=== PATIENT | male | born 1940 | race Caucasian/White ===

== ENCOUNTER 2024-08-19 08:44 | Outpatient (CLI) | payer MEDICARE, OTHER, SELFPAY ==
[2024-08-19] VITALS (12 sets, daily range): BP systolic 118–175; BP diastolic 47–63; PULSE 60–81; RESP 13–20; TEMP 36.5; O2SAT 92–100; BMI 23.0
--- NOTE | 2024-08-19 | IMM_PTH ---
PATIENT: DARVIN BURGESS LOC: CT U#:[id number] AGE/SX: 84/M ROOM: RE08/19/[address]: RITIKA Butler : 1940 BED: DIS: 08/19/2024 SPEC #: [id number] RECD: 08/20/24 11:25 STATUS: KAMILAH REQ #: [id number] DAV: 08/19/24 00:[address]: Christina Muñoz NP DEPT: IMMUNOHISTOCHEMISTRY RECD BY: Prashanth Danielle ENTERED: 08/20/24 11:25 SP TYPE: IMMUNO OTHR DR: ADILSON Poole CARDIOLOGY NURSE PRACTITIONER-C Tissues: A - Bone marrow of iliac crest B - Bone marrow of iliac crest Procedures: CD34 (initial) PHYSICIAN & INSTITUTION [place] [id number] SPECIMEN INFORMATION: Tissue Source: A- Bone marrow core, B- Bone marrow clot Clinical Info: Anemia Specimen Number: [id number] A, B CPT code: [id number] METHODOLOGY: Deparaffinized sections of prefer/formalin-fixed tissue or PAP/DQ stained slides are incubated with monoclonal/polyclonal antibodies/oligonucleotide probes. Localization is made via biotin free immunoperoxidase method. Appropriate controls are performed and reacted as expected. Results on target cell population are indicated in the following table: RESULTS: ANTIBODY / CLONE RESULT Block A CD34 (QBEnd-10) negative [place] (polyclonal) positive Lambda (polyclonal) positive CD138 (B-A38) positive Block B CD34 (QBEnd-10) negative [place] (polyclonal) positive Lambda (polyclonal) positive CD138 (B-A38) positive These tests were developed and their performance characteristics determined by [facility]. They may not have been cleared or approved by the U.S. Food and Drug Administration. The FDA has determined that such clearance or approval is not necessary. The above immunohistochemical/dualISH markers are ordered and reviewed by the Pathologist. INTERPRETATION: A. Bone marrow core, biopsy: Increased number of blasts are not noted. Significant increase of plasma cells is not seen. B. Bone marrow clot, biopsy: Increased number of blasts are noted. Significant increase of plasma cells is not seen. JOSE. 08/25/2024
[2024-08-19 09:05] LABS: Absolute Neutrophil Count 1.9 X10^3/uL (2.0-7.7); Basophil# 0.05 X10^3/uL; Basophil% 1.4 % (0-1); Eosinophil# 0.15 X10^3/uL; Eosinophils% 4.2 % (0-5); Hematocrit 27.9 % (40-54); Lymphocyte % 19.6 % (19-41); Mean Corp Hgb Conc 32.3 g/dL (32-36); Mean Corpuscular Hgb 36.6 pg (27.0-32.0); Mean Corpuscular Volume 113.4 fL (80-94); Monocyte# 0.74 X10^3/uL; Monocyte% 20.7 % (0-10); NRBC Flagged by Analyzer 0 % (0-5); Neutrophil # 1.92 X10^3/uL (2.7-7.7); Neutrophil % 53.8 % (47-70); Platelet Count 222 K/mm3 (150-450); RBC Distribution Width CV 15.3 % (11.6-14.6); RBC Distribution Width SD 63.4 fl (35.1-43.9); Red Blood Count 2.46 M/mm3 (4.6-6.2); White Blood Count 3.6 K/mm3 (4.4-11.0)
[2024-08-19 09:12] LABS: International Normalized Ratio 1.2; Partial Thromboplast Time 25.6 Seconds (24.1-36.2); Prothrombin Time (Protime)PT. 15.8 SECONDS (11.7-14.9)
--- NOTE | 2024-08-19 10:00 | BMB_PTH ---
PATIENT: DARVIN BURGESS LOC: [place] U#:[id number] AGE/SX: 84/M ROOM: RE08/19/[address]: RITIKA Butler : 1940 BED: DIS: 08/19/2024 SPEC #: [id number] RECD: 08/19/24 11:08 STATUS: KAMILAH REClaudy #: [id number] DAV: 08/19/24 10:[address]: Christina Muñoz NP DEPT: BONE MARROW RECD BY: Sasha Matias ENTERED: 08/19/24 11:09 SP TYPE: BMB HERMINIA DR: ADILSON Poole NP-C Tissues: A - Bone marrow, NOS B - Bone marrow, NOS C - Bone marrow, NOS Procedures: Decalcification bone/plaque Bone Marrow Aspiration Bone Marrow Core Biopsy Iron Stain Bone Marrow HEADER OPERATION: Bone marrow biopsy PRE-OP DIAGNOSIS: Anemia TISSUE SUBMITTED: A - Core, B - Clot, C - Smears, and send outs (flow, cytogenetics) BONE MARROW DIAGNOSIS Bone marrow core, clot and aspirate smears: Normoellular marrow with changes consistent with myelodysplastic syndrome. Macrocytic anemia, leukopenia, and neutropenia. See comment. JOSE 08/25/2024 COMMENT Atypical and ring sideroblasts are noted. Flow cytometry study from [facility] shows monotypic plasmacytic cell population with cytoplasmic kappa light chain expression, representing <1% of the total cells analyzed. The complete report is viewable in the patient's EMR. Cytogenetic and FISH studies are pending. Clinical correlation and appropriate follow up are necessary. This case has been reviewed in consultation with Dr. Garcia who concurs with the above diagnosis. IDC:PW BONE MARROW STUDY Slides are reviewed. CBC DATE: 08/19/2024 WBC 3.6; RBC 2.4; HGB 9.0; HCT 27.9; MCV 113.4; RDW 15.3; PLTS 222,000 SEGS 53.8%; LYMPHS 19.6%; MONOS 20.7%; EOS 4.2%; BASOS 1.4% PERIPHERAL SMEAR: Submitted. RBC: Macrocytic anemia. WBC: Leukopenia and neutropenia. The WBC count is compatible to as reported above. PLTS: Adequate. BONE MARROW ASPIRATE DIFFERENTIAL: 200 cell count. Blasts % (normal 0-2): 0 Promyelocytes % (normal 1-5): 2 Myelocytes and metamyelocytes % (normal 17-41): 13 Bands and Segs % (normal 15-32): 15 Eos % (normal 1-6): 5 Basos % (normal 0-1): 0 Monocytes % (normal 0-4): 1 Erythroid Precursors % (normal 17-35): 57 Lymphocytes % (normal 7-13): 6 Plasma Cells % (normal 0-2): 1 ASPIRATE FINDINGS: Site: Not specified Only 1 smear is cellular with bony spicules, rest of the smears shows hemodilution. All submitted smears are examined. M/E ratio: 0.6 (Normal 1.5-4.0) Megakaryocytes: Present and a few hypolobated megakaryocytes are noted Erythropoiesis: Megaloblastic Granulopoiesis: Left shift is noted. CORE BIOPSY FINDINGS: Site: Not specified Adequacy: Adequate Cellularity: 50% M/E ratio: Erythroid hyperplasia and myeloid hypoplasia is noted. Megakaryocytes: Present and adequate in number. Bony trabeculae: Unremarkable. Granulomas: Absent. Lymphoid aggregate: Absent. Atypical infiltrate: Absent. Comment: Immunohistochemistry ([id number]) does not show increased number of blasts and significant increased number of plasma cells ASPIRATE CLOT FINDINGS: Site: Not specified Marrow particles: Numerous Cellularity: 50% M/E ratio: Erythroid hyperplasia and myeloid hypoplasia is noted. Megakaryocytes: Present and adequate in number. Granulomas: Absent. Lymphoid aggregates: Absent. Atypical infiltrates: Absent. Comment: Immunohistochemistry ([id number]) does not show increased number of blasts and significant increased number of plasma cells. SPECIAL STAINS WITH MATCHED CONTROLS: Iron: 1+, atypical and ring sideroblasts are noted. Iron stain smear shows hemodilution. Exact number of ring sideroblasts cannot be assessed. Reticulin: No significant increase of reticulin fibers is noted. PAS: Highlights myeloid cells and megakaryocytes. BONE MARROW GROSS A - Received is a container labeled with the patient's name and designated Bone marrow core. The specimen consists of a minute piece of young bone mixed with blood clot measuring 0.5 x 0.1 x 0.1 cm. The specimen is totally submitted in one cassette after decalcification. B - Received labeled with the patient's name and designated Bone marrow clot is a specimen that consists of approximately 3 ml of bloody fluid that on filtration yields multiple minute fragments of blood clots measuring in aggregate 2 x 2 x 0.1 cm. The specimen is totally submitted in one cassette. C - Also received are 12 unstained slides and 1 peripheral stained slide. The unstained slides are submitted for appropriate staining. Also received are 2 green top tubes which are sent to our reference lab for flow, cytometry studies and MDS. /SJ. 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
[2024-08-19] MEDS: Midazolam 2 MG/2 ML Syringe IV (10:09)
--- NOTE | 2024-08-19 10:10 | CT_ITS ---
PROCEDURE: CT-guided bone marrow biopsy of the posterior right iliac bone. REASON FOR EXAM: Lymphopenia. Macrocytic anemia. TECHNIQUE: The procedure as well as the benefits and possible complications including infection and bleeding were explained to the patient. Informed consent was obtained. The patient was in the supine position. The posterior aspect of the right buttock was prepped and draped in the usual sterile fashion. Conscious sedation was performed. The patient received 2 mg of Versed and 50 mcg of fentanyl intravenously. Conscious sedation was started at 10:09 a.m. and terminated at 10:37 a.m.. The patient was independently monitored by the department nurse. 11 gauge core biopsy needle system was placed into the right iliac bone. Bone marrow biopsy and aspiration were obtained. The patient tolerated the procedure well. COMPARISON: None FINDINGS: Successful CT-guided bone marrow biopsy of the right iliac bone. CT/Biopsy/Inj or Needle Placement IMPRESSION: Successful CT-guided bone marrow biopsy of the right iliac bone. The patient t olerated the procedure well. No immediate complication is seen. One or more dose reduction techniques were used (e.g., Automated exposure contr ol, adjustment of the mA and/or kV according to patient size, use of iterative reconstruction technique). Reading Location: [place] [id number]
[2024-08-19] MEDS: 0.9% Saline Lock 10 ML Syringe IV (10:14)
[2024-08-19] MEDS: fentaNYL 100 MCG/2 ML Ampul IV (10:15)
[2024-08-19] MEDS: Lidocaine 2% (20 ml mdv) 20 ML Vial INFILT (10:28)
[2024-09-01 13:21] LABS: LabCorp Misc. 4 SEE PATHOLOGY REPORT
== END 2024-08-19 23:59 | disposition home or self-care (01) ==
PROVIDERS: Referring Provider Nurse Practitioner Family; Visit Provider Nurse Practitioner Family
DX: D53.9 Nutritional anemia, unspecified (principal); D72.810 Lymphocytopenia
CPT/HCPCS: 38221; 36415; 77012; 85025; 85610; 85730; 88305; 88311; 88313; 88342; 99156; A4216

== ENCOUNTER → 2024-10-19 | Outpatient (CLI) | payer MEDICARE, OTHER, SELFPAY ==
--- NOTE | 2024-10-19 12:41 | ECHOD_ITS ---
Reason For Study Reason For Study: CAD/ASHD Procedure This was a 2D Doppler, Color Flow transthoracic echocardiogram. Exam performed in department. Left Ventricle Normal LV size. Mild concentric left ventricular hypertrophy. Redundant mitral chord noted. The left ventricular ejection fraction is 55 %. Stage I diastolic dysfunction with elevated left atrial filling pressures. Right Ventricle Normal right ventricle. ICD or pacer leads identified within the right ventricle. Atria The left and right atria are normal. ICD or pacer leads identified within the right atrium. Mitral Valve Mild (1+) mitral valve insufficiency. Tricuspid Valve Mild tricuspid valve insufficiency. Right ventricular systolic pressure estimated to be 71 mmHg. Aortic Valve Trisinus/trileaflet aortic valve. Aortic valve sclerosis without stenosis. Mild aortic valve regurgitation. Pulmonic Valve The pulmonic valve is not well visualized. Great Vessels Normal sized aortic root. Pericardium/Pleural No pericardial effusion. MMode/2D Measurements & Calculations LVIDd: 4.8 cm IVSd: 0.99 cm Ao root diam: 2.8 cm LVIDs: 3.4 cm LVPWd: 1.3 cm RVDd: 3.9 cm FS: 30.3 % LAV(MOD-bp): 53.2 ml LVAd ap4: 29.8 cm2 SV(MOD-sp4): 50.9 ml LAV(MOD-bp) Indexed: 26.5 ml/m2 LVLd ap4: 8.1 cm SI(MOD-sp4): 25.3 ml/m2 LAV(MOD-sp2): 57.5 ml EDV(MOD-sp4): 90.9 ml LAV(MOD-sp4): 51.8 ml EDV(sp4-el): 93.2 ml LVAs ap4: 18.0 cm2 LVLs ap4: 7.2 cm ESV(MOD-sp4): 40.0 ml ESV(sp4-el): 38.2 ml EF(MOD-sp4): 56.0 % EF(sp4-el): 59.0 % SV(sp4-el): 55.0 ml LA A4 area: 19.1 cm2 LA dimension(2D): 3.6 cm RA A4 area: 18.4 cm2 TAPSE: 2.5 cm Time Measurements MV dec time: 0.23 sec Doppler Measurements & Calculations MV E max roc: 84.0 cm/sec Lat Peak E' Roc: 6.6 cm/sec Med Peak E' Roc: 3.6 cm/sec MV A max roc: 88.0 cm/sec E/E' lat: 12.7 E/E' med: 23.1 MV E/A: 0.96 Ao V2 max: 154.4 cm/sec AI max roc: 372.3 cm/sec MV dec slope: 359.4 cm/sec2 Ao max P.5 mmHg AI max P.5 mmHg Ao V2 mean: 100.2 cm/sec Ao mean P.7 mmHg AI dec slope: 235.5 cm/sec2 Ao V2 VTI: 40.9 cm AI P1/2t: 463.0 msec AV (velocity ratio): 0.78 LV V1 max: 114.4 cm/sec PA V2 max: 93.8 cm/sec TR max roc: 374.7 cm/sec LV V1 max P.2 mmHg TR max P.1 mmHg LV V1 mean P.8 mmHg LV V1 mean: 77.8 cm/sec LV V1 VTI: 32.1 cm ECHO/Echo Complete Interpretation Summary Mild concentric left ventricular hypertrophy. The left ventricular ejection fraction is 55 %. Stage I diastolic dysfunction w ith elevated left atrial filling pressures. Mild (1+) mitral valve insufficiency. Mild tricuspid valve insufficiency. Right ventricular systolic pressure estimated to be 71 mmHg. Aortic valve sclerosis without stenosis. Mild aortic valve regurgitation. Ordering Physician: Naomi Padron Referring Physician: Reggie Leigh Performed By: Marleny Judd, JASSCS, RVT
== END | disposition home or self-care (01) ==
LOC: CVS 12:36
PROVIDERS: Referring Provider Internal Medicine Cardiovascular Disease; Visit Provider Internal Medicine Cardiovascular Disease
DX: I11.0 Hypertensive heart disease with heart failure (principal); I50.9 Heart failure, unspecified; I25.10 Atherosclerotic heart disease of native coronary artery without angina pectoris; R53.83 Other fatigue
CPT/HCPCS: 93306

== ENCOUNTER 2025-05-07 11:15 | Inpatient (IN) | payer MEDICARE, OTHER, SELFPAY ==
[2025-05-07] VITALS (15 sets, daily range): BP systolic 147–194; BP diastolic 51–75; PULSE 60–86; RESP 16–24; TEMP 36.3–36.8; O2SAT 85–100; BMI 23.3
[2025-05-07 12:34] LABS: Hematocrit 27.0 % (40-54); Hemoglobin 8.4 g/dL (13.0-16.5); Immature Granulocytes Count 0.040 X10^3/uL (0.0-0.0); Mean Corp Hgb Conc 31.1 g/dL (32-36); Mean Corpuscular Volume 116.4 fL (80-94); Mean Platelet Vol. 11.1 fl (6.2-12.0); NRBC Flagged by Analyzer 0 % (0-5); POSITIVE DIFFERENTIAL YES; POSITIVE MORPHOLOGY YES; Platelet Count 224 K/mm3 (150-450); RBC Distribution Width CV 16.4 % (11.6-14.6); RBC Distribution Width SD 70.3 fl (35.1-43.9); Red Blood Count 2.32 M/mm3 (4.6-6.2); White Blood Count 4.8 K/mm3 (4.4-11.0)
[2025-05-07 12:38] LABS: Differential Indicated SCAN CRITERIA MET
[2025-05-07] MEDS: 0.9% Normal Saline (1000mL) 1,000 ML 999 ML IV (12:39)
--- NOTE | 2025-05-07 12:50 | RAD_ITS ---
PROCEDURE: RAD/Chest PA and Lateral
[2025-05-07 13:13] LABS: Anion Gap 9 (5-15); BUN 20 mg/dL (4-19); BUN/Creat Ratio 14.1 RATIO (10-20); Calcium,Total 9.1 mg/dL (7.6-11.0); Carbon Dioxide 27.3 mmol/L (21.0-32.0); Chloride 104 mmol/L (98-108); Glucose 232 mg/dL (70-99); Potassium 4.8 mmol/L (3.3-5.1); Pro- Brain NATRIURETIC PEPTIDE 3325 pg/mL (<=1800); Troponin T High Sensitivity 33 ng/L (<=22)
[2025-05-07 13:34] LABS: Anisocytosis 1+
--- NOTE | 2025-05-07 14:18 | EX.ED.DYSGE1 ---
HPI History of Present Illness Chief Complaint: Shortness of Breath Narrative Narrative: Patient is 84-year-old male with past medical history of basal cell carcinoma, type 2 diabetes, CHF, chronic kidney disease, anemia, hypertension, COPD not chronically on oxygen who presented to the emergency department the chief complaint of low oxygen levels. He states that for the past few days he notes that if he gets up and walks around his oxygen level will drop he noted at home it was at 67% on room air and he felt lightheaded with this. He states that he sits down and take some deep breaths and notes that his oxygen level will recover. He states that he had an appointment today and he brought this up to them and they advised him that he needs to go to the emergency department to be evaluated. Patient was hypoxic in triage placed on 2 L nasal cannula. [facility] Medical History Basal cell carcinoma Abnormality of gait and mobility Vitamin D deficiency Vertigo Venous insufficiency Urinary frequency Type 2 diabetes mellitus with diabetic polyneuropathy Type 2 diabetes mellitus with diabetic peripheral angiopathy without gangrene, without long-term current use of insulin Sick sinus syndrome Shaky Sensorineural hearing loss (SNHL) of both ears Seborrheic keratoses long-term (current) use of oral hypoglycemic drugs Stage 3b chronic kidney disease Hypertensive heart disease with heart failure Chronic kidney disease Hypertensive heart and renal disease with heart failure Fatigue Elevated MCV Dermoid cyst De Quervain's tenosynovitis Atherosclerosis of [place] artery of both lower extremities Atherosclerosis of aorta Anemia Lymphopenia Cellulitis of right thumb Puncture wound of right thumb with foreign body Hypertension Hyperlipemia Gout DM2 (diabetes mellitus, type 2) COPD (chronic obstructive pulmonary disease) Pacemaker Leukopenia Macrocytic anemia Home Medications ?Medication ?Instructions ?Recorded ?Last Taken ?Type allopurinol 100 mg tablet 100 mg PO QDAY 05/04/24 Unknown History ascorbate calcium (vitamin C) 500 500 mg PO QDAY 05/04/24 Unknown History mg tablet atenolol 50 mg tablet 50 mg PO QDAY 05/04/24 Unknown History mecobalamin (vitamin B12) 1,000 1,000 mcg PO QDAY 05/04/24 Unknown History mcg chewable tablet simvastatin 20 mg tablet 20 mg PO QDAY 05/04/24 Unknown History tiotropium bromide 1.25 2 puff inhalation Q24H 05/04/24 Unknown History mcg/actuation mist for inhalation (Spiriva Respimat) valsartan 80 mg tablet 80 mg PO QDAY 05/04/24 Unknown History albuterol sulfate 90 mcg/actuation 2 puff inhalation Q4H PRN 05/19/24 Unknown History aerosol inhaler shortness of breath or wheezing cholecalciferol (vitamin D3) 10 10 mcg PO QDAY 05/19/24 Unknown History mcg (400 unit) capsule folic acid 1 mg tablet 0.8 mg PO QDAY 05/19/24 Unknown History meclizine 25 mg chewable tablet 25 mg PO DAILY 08/19/24 Unknown History (Antivert) aspirin 81 mg tablet,delayed 81 mg PO QDAY #90 tabs 09/17/24 Unknown Rx release (Ecotrin Low Strength) amlodipine 5 mg tablet 5 mg PO QDAY #90 tabs 10/28/24 Unknown Rx Allergy/AdvReac Type Severity Reaction Status Date / Time Penicillins Allergy blister Verified 05/07/25 11:19 Family History Father Pancreatic cancer Mother CVA (cerebral vascular accident) Surgical History History of dental surgery History of removal of skin mole Social History current occupational status: retired Smoking Status: Former smoker Tobacco: How many years used: 20 alcohol intake: current alcohol intake frequency: a few times a month substance use type: does not use ROS ROS ED ROS Narrative Constitutional: Denies any fevers, chills, headaches Eyes: Denies change in vision double vision blurry vision Cardiovascular: Denies chest pain Respiratory: Complains of shortness of breath as noted above denies coughing Abdomen: Denies abdominal pain nausea vomit diarrhea : Denies urinary symptoms Neurological: Denies numbness, weakness, tingling Musculoskeletal: Denies back pain Skin: Denies any rashes or lesions EXAM Physical Exam Narrative Exam Narrative: General: Patient was lying in bed rest comfortably did not appear to be in acute distress Head: Atraumatic, normocephalic Eyes: PERRL bilaterally, EOMI bilaterally, no conjunctival injection noted Neck: Soft, supple, trachea midline Cardiovascular: Regular rate and rhythm Respiratory: Diminished breath sounds bilaterally Abdomen: Soft, nondistended, no tenderness to palpation Extremities: 2+ pitting edema in the bilateral lower extremities, +4/5 strength noted in the bilateral upper and lower extremities Neurological: Patient following commands that he was at [facility] the year is 2024 Skin: Warm, dry, intact no rashes lesions noted Const Vital Signs: 05/07/25 11:16 05/07/25 11:21 05/07/25 11:32 Temperature 98 F Temperature Source Oral Pulse Rate 66 Respiratory Rate 24 H Respiratory Depth Normal Respiratory Pattern Normal Blood Pressure 147/75 H Blood Pressure Mean 99 Pulse Ox 85 97 Oxygen Delivery Method Room Air Nasal Cannula Nasal Cannula Oxygen Flow Rate (L/min) 2 2 05/07/25 12:16 05/07/25 12:25 05/07/25 12:50 Temperature Temperature Source Pulse Rate 61 Respiratory Rate 16 Respiratory Depth Respiratory Pattern Blood Pressure 147/55 H Blood Pressure Mean 85 Pulse Ox 100 89 Oxygen Delivery Method Nasal Cannula Nasal Cannula Room Air Oxygen Flow Rate (L/min) 2 2 05/07/25 13:00 05/07/25 13:03 05/07/25 13:09 Temperature Temperature Source Pulse Rate 61 60 Respiratory Rate 16 17 Respiratory Depth Respiratory Pattern Normal Blood Pressure 176/66 H Blood Pressure Mean 102 Pulse Ox 98 100 Oxygen Delivery Method Room Air Nasal Cannula Oxygen Flow Rate (L/min) 2 05/07/25 14:03 Temperature Temperature Source Pulse Rate 67 Respiratory Rate 17 Respiratory Depth Respiratory Pattern Blood Pressure 151/51 H Blood Pressure Mean 84 Pulse Ox 94 Oxygen Delivery Method Room Air Oxygen Flow Rate (L/min) MDM MDM MDM Narrative Medical decision making narrative: Patient is a 84-year-old male who presents to the emergency department with a chief complaint of shortness of breath and hypoxia on room air. On the differential diagnose includes but not meant to pneumonia, pneumothorax, CHF, ACS. Once workup is obtained and reviewed he will be reevaluated. Patient given 3 DuoNebs and Solu-Medrol. Patient's CBC reviewed and showed no evidence leukocytosis white blood count 4.8, hemoglobin stable at 8.4, plate count was noted be 224. Patient odium was normal at 140, potassium of 4.8, creatinine was 1.40 he has underlying chronic kidney disease. Patient troponin was 33 with a delta troponin pending proBNP elevated to 3325. Patient's chest x-ray reviewed that showed scarring at the bases no consolidation he has blunting of the costophrenic angles bilaterally. Patient's echo from 10/19/2024 was reviewed showed ejection fraction of 55% with stage I diastolic dysfunction. Patient is EKG reviewed and showed a ventricular rate of 62 bpm atrial paced rhythm with [place] interval of 214 no Sgarbossa criteria met. When patient attempts to ambulate or move here in the emergency department he becomes hypoxic. Patient will give 40 mg of IV Lasix. At this point time will discuss case with hospitalist for CHF exacerbation. Discussed case with hospitalist Dr. Calzada who excepted patient for admission. Patient notified is agreeable to plan all course concerns answered. Lab Data Labs: Laboratory Results - last 24 hr 05/07/25 05/07/25 12:02 14:04 WBC 4.8 RBC 2.32 L Hgb 8.4 L Hct 27.0 L MCV 116.4 H MCH 36.2 H MCHC 31.1 L RDW Std Deviation 70.3 H RDW Coeff of Matt 16.4 H Plt Count 224 MPV 11.1 Immature Gran % (Auto) 0.800 Neut % (Auto) 75.9 H Lymph % (Auto) 9.0 L Barnes % (Auto) 11.5 H Eos % (Auto) 1.5 Baso % (Auto) 1.3 H Absolute Neuts (auto) 3.6 Absolute Lymphs (auto) 0.43 L Nucleated RBC % 0 Anisocytosis 1+ Sodium 140 Potassium 4.8 Chloride 104 Carbon Dioxide 27.3 Anion Gap 9 BUN 20 H Creatinine 1.40 H Est GFR (MDRD) Non-Af 49 L BUN/Creatinine Ratio 14.1 Glucose 232 H Calcium 9.1 Troponin T High Sens 33 H Troponin T Hi Sens 2 Hr 28 H NT pro BNP II 3325 H Radiography Diagnostic Testing: Clinical Impression(s) from Imaging Studies Chest X-Ray 05/07/25 12:50 IMPRESSION: Scarring at the lung bases. No consolidation. Blunting of the costophrenic sulci from pleural fluid or pleural thickening. Reading Location: [id number] Discharge Plan Dx/Rx/DC Orders Clinical Impression: CHF exacerbation, Acute hypoxemic respiratory failure, Chronic kidney disease, Type 2 diabetes mellitus with diabetic polyneuropathy, COPD (chronic obstructive pulmonary disease) Disposition Disposition: Acute Care Hospital [facility]
--- NOTE | 2025-05-07 14:37 | PCM.HP.STD ---
HPI - General General Date of Admission: 05/07/25 Date of Service: 05/07/25 Chief Complaint: Shortness of breath and hypoxia HPI Narrative DARVIN BURGESS, is a 84 M who presented to [facility] ED on 05/07/2025 with worsening shortness of breath and hypoxia. Medical history significant for COPD not on home oxygen, history of CAD with stenting, hypertension, hyperlipidemia, sick sinus syndrome s/p pacemaker placement, myelodysplastic syndrome with chronic anemia, and CKD stage IIIa. He lives at home with his son and reports fairly good functional status at baseline. He has noticed increasing shortness of breath with exertion over the past few weeks along with some lower extremity swelling. He has a pulse ox at home and noted that his oxygen level dropped into the 60 to 70s with exertion and he felt lightheaded today, so he came to the ED for further evaluation. In the ED he was hypoxic to the mid 80s on room air at rest that improved on 2 L nasal cannula, was mildly hypertensive to the 140s to 150s systolic, was otherwise in normal sinus rhythm and afebrile. CBC and BMP were at baseline. Troponin trend 33 > 28 > 34. BNP 3325. Chest x-ray showed mild vascular congestion, blunting of the costophrenic angles due to either pleural fluid versus pleural thickening. He was given a few rounds of DuoNebs in the ED without much improvement in shortness of breath. After his workup above, he was given a dose of IV Lasix and hospitalist was contacted for admission. I saw the patient at bedside in the ED. Patient had fairly good energy level and was sitting back comfortably in bed, conversing normally, in no acute distress. He did have +2-3 lower extremity pitting edema noted on exam. He denied any shortness of breath or any other acute concerns at rest currently. Will be admitted for further management. [facility] Medical History Basal cell carcinoma Abnormality of gait and mobility Vitamin D deficiency Vertigo Venous insufficiency Urinary frequency Type 2 diabetes mellitus with diabetic polyneuropathy Type 2 diabetes mellitus with diabetic peripheral angiopathy without gangrene, without long-term current use of insulin Sick sinus syndrome Shaky Sensorineural hearing loss (SNHL) of both ears Seborrheic keratoses care home (current) use of oral hypoglycemic drugs Stage 3b chronic kidney disease Hypertensive heart disease with heart failure Chronic kidney disease Hypertensive heart and renal disease with heart failure Fatigue Elevated MCV Dermoid cyst De Quervain's tenosynovitis Atherosclerosis of samish artery of both lower extremities Atherosclerosis of aorta Anemia Lymphopenia Cellulitis of right thumb Puncture wound of right thumb with foreign body Hypertension Hyperlipemia Gout DM2 (diabetes mellitus, type 2) COPD (chronic obstructive pulmonary disease) Pacemaker Leukopenia Macrocytic anemia Home Medications ?Medication ?Instructions ?Recorded ?Last Taken ?Type ascorbate calcium (vitamin C) 500 500 mg PO QDAY supplement 05/04/24 Unknown History mg tablet atenolol 50 mg tablet 50 mg PO QDAY heart 05/04/24 05/07/25 History simvastatin 20 mg tablet 20 mg PO QDAY cholesterol 05/04/24 Unknown History tiotropium bromide 1.25 2 puff inhalation Q24H 05/04/24 Unknown History mcg/actuation mist for inhalation (Spiriva Respimat) valsartan 80 mg tablet 40 mg PO QDAY hf 05/04/24 05/07/25 History albuterol sulfate 90 mcg/actuation 2 puff inhalation Q4H PRN 05/19/24 Unknown History aerosol inhaler shortness of breath or wheezing cholecalciferol (vitamin D3) 10 10 mcg PO QDAY supplement 05/19/24 Unknown History mcg (400 unit) capsule folic acid 1 mg tablet 0.8 mg PO QDAY supplement 05/19/24 Unknown History meclizine 25 mg chewable tablet 25 mg PO PRN vertigo 08/19/24 Unknown History (Antivert) aspirin 81 mg tablet,delayed 81 mg PO QDAY heart #90 tabs 09/17/24 05/07/25 Rx release (Ecotrin Low Strength) amlodipine 5 mg tablet 5 mg PO QDAY bp #90 tabs 10/28/24 05/07/25 Rx furosemide 20 mg tablet 20 mg PO DAILY water pill 05/07/25 Unknown History furosemide 40 mg tablet 40 mg PO DAILY hf 05/07/25 05/07/25 History gabapentin 100 mg capsule 100 mg PO DAILY PRN neuropathy 05/07/25 Unknown History Allergy/AdvReac Type Severity Reaction Status Date / Time Penicillins Allergy blister Verified 05/07/25 11:19 Family History Father Pancreatic cancer Mother CVA (cerebral vascular accident) Surgical History History of dental surgery History of removal of skin mole Social History current occupational status: retired Smoking Status: Former smoker Tobacco: How many years used: 20 alcohol intake: current alcohol intake frequency: a few times a month substance use type: does not use ROS Constitutional Constitutional: Reports fatigue; Denies chills, fever(s) or weakness Cardiovascular Cardiovascular: Reports dyspnea on exertion and edema; Denies chest pain, lightheadedness, orthopnea or palpitations Respiratory/Chest Respiratory/Chest: Denies cough, productive cough, shortness of breath at rest or wheezing Gastrointestinal Gastrointestinal: Denies abdominal pain Musculoskeletal Musculoskeletal: Denies arthralgias or myalgias Neurologic Neurologic: Denies dizziness, focal weakness or headache(s) Vital Signs Vital Signs Vital Signs: 05/07/25 11:16 05/07/25 11:21 05/07/25 11:32 Temperature 98 F Temperature Source Oral Pulse Rate 66 Respiratory Rate 24 H Respiratory Depth Normal Respiratory Pattern Normal Blood Pressure 147/75 H Blood Pressure Mean 99 Pulse Ox 85 97 Oxygen Delivery Method Room Air Nasal Cannula Nasal Cannula Oxygen Flow Rate (L/min) 2 2 05/07/25 12:16 05/07/25 12:25 05/07/25 12:50 Temperature Temperature Source Pulse Rate 61 Respiratory Rate 16 Respiratory Depth Respiratory Pattern Blood Pressure 147/55 H Blood Pressure Mean 85 Pulse Ox 100 89 Oxygen Delivery Method Nasal Cannula Nasal Cannula Room Air Oxygen Flow Rate (L/min) 2 2 05/07/25 13:00 05/07/25 13:03 05/07/25 13:09 Temperature Temperature Source Pulse Rate 61 60 Respiratory Rate 16 17 Respiratory Depth Respiratory Pattern Normal Blood Pressure 176/66 H Blood Pressure Mean 102 Pulse Ox 98 100 Oxygen Delivery Method Room Air Nasal Cannula Oxygen Flow Rate (L/min) 2 05/07/25 14:03 Temperature Temperature Source Pulse Rate 67 Respiratory Rate 17 Respiratory Depth Respiratory Pattern Blood Pressure 151/51 H Blood Pressure Mean 84 Pulse Ox 94 Oxygen Delivery Method Room Air Oxygen Flow Rate (L/min) Physical Exam Const alert, oriented x3, no apparent distress and average body habitus Constitutional Narrative: Pleasant elderly male, mentally sharp, mildly fatigued appearing but otherwise sitting back comfortably in bed, conversing normally, in no acute distress. General Appearance: cooperative and comfortable HEENT normocephalic, head/scalp atraumatic, hearing grossly normal bilaterally, nasal mucous membranes and turbinates normal and moist oral mucous membranes Eyes PERRL, EOMs intact bilaterally and conjunctivae normal Neck full ROM Chest inspection of chest normal Resp normal respiratory effort and no use of accessory muscles Resp Narrative: Breathing comfortably on 2 L nasal cannula at rest. Diminished breath sounds in bilateral lungs throughout with mild crackles noted in lung bases. No wheezing noted. Cardio regular rate, regular rhythm, no murmurs and peripheral pulses 2+ throughout GI normal to inspection, nondistended, normoactive bowel sounds, soft to palpation, non-tender and non-distended Back/Spine normal ROM Extremity Extremity Narrative: +2-3 lower extremity pitting edema up to the knees bilaterally. Skin no rashes or lesions noted Psych mental status grossly normal Results Lab / Micro Data 05/07/25 12:02 05/07/25 12:02 Labs: Laboratory Results - last 24 hr 05/07/25 12:02: WBC 4.8, RBC 2.32 L, Hgb 8.4 L, Hct 27.0 L, MCV 116.4 H, MCH 36.2 H, MCHC 31.1 L, RDW Std Deviation 70.3 H, RDW Coeff of Matt 16.4 H, Plt Count 224, MPV 11.1, Immature Gran % (Auto) 0.800, Neut % (Auto) 75.9 H, Lymph % (Auto) 9.0 L, [place] % (Auto) 11.5 H, Eos % (Auto) 1.5, Baso % (Auto) 1.3 H, Absolute Neuts (auto) 3.6, Absolute Lymphs (auto) 0.43 L, Nucleated RBC % 0, Anisocytosis 1+, Sodium 140, Potassium 4.8, Chloride 104, Carbon Dioxide 27.3, Anion Gap 9, BUN 20 H, Creatinine 1.40 H, Est GFR (MDRD) Non-Af 49 L, BUN/Creatinine Ratio 14.1, Glucose 232 H, Calcium 9.1, Troponin T High Sens 33 H, NT pro BNP II 3325 H Imaging Radiology Impression Chest X-Ray 05/07/25 12:50 IMPRESSION: Scarring at the lung bases. No consolidation. Blunting of the costophrenic sulci from pleural fluid or pleural thickening. Reading Location: [id number] Assessment & Plan Assessment/Plan (1) Acute on chronic heart failure with preserved ejection fraction (HFpEF): PLAN: Plan Patient is an 84-year-old male who presented to [facility] ED on 05/07/2025 with shortness of breath and hypoxia. 1. Acute on chronic HFpEF exacerbation with acute hypoxia ? Admit under inpatient status to PCU. Follows with cardiology as below. Recent echo in September showed EF 55%, stage I diastolic dysfunction, pulmonary hypertension, no significant valvular issues. Patient prescribed Lasix 40 mg daily as needed but has not taken this for several months. Presented with worsening shortness of breath and hypoxia with exertion along with lower extremity swelling. Not on home oxygen, was requiring 3 L nasal cannula at rest to maintain appropriate saturations. BNP greater than 3000. Chest x-ray with mild vascular congestion and small bilateral pleural effusions noted. Will treat with IV Lasix 40 mg twice daily for now, monitor daily BMP and urine output. Repeat echocardiogram ordered. Stress test ordered below as well. 2. Elevated troponins in setting of history of CAD with stenting, hypertension, hyperlipidemia, SSS s/p pacemaker placement ? Follows with [facility], last office visit on 03/24. Patient reported fatigue, chronic lower extremity swelling and shortness of breath with exertion at that time. Because of this, cardiology noted that a stress test was ordered for further evaluation but has not been completed yet. Troponin trend 33 > 28 > 34 in the ED, EKG with no ischemic changes and no chest pain noted per patient. However, given recent cardiology recommendations will order stress test to be done here while inpatient. Will continue home aspirin, statin, amlodipine and valsartan. Will hold atenolol for stress test tomorrow and then can resume afterward. 3. COPD ? Not on home oxygen. Was diagnosed with moderate COPD back in 2019. Was given multiple DuoNebs in the ED without improvement in shortness of breath, and he had no wheezing on exam. No recent upper infectious symptoms noted. Seems most consistent with CHF exacerbation as above and not COPD exacerbation. Continue home inhalers. 4. 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 Follows with hematology/oncology. Hemoglobin stable at baseline 8-9 on admission. 5. Type 2 diabetes mellitus with diabetic neuropathy ? Glucose 232 on admit. A1c 6.7%. Not on any home medications for diabetes. Will treat with sliding scale insulin meals while inpatient, adjust as needed. 6. CKD stage IIIa ? Creatinine 1.40 on admit, stable at baseline. Monitoring daily BMP and urine output while on IV Lasix as above. DVT prophylaxis: Lovenox CODE STATUS: DNR-CCA, DNI Expected disposition: Home, TBD Total clinical time spent by myself addressing the patient's medical issues, reviewing all the data, and collaborating with patient's care team: 82 minutes. Charges/Coding Visit Charges Inpatient E&M: 87247 Init Hosp L3
[2025-05-07 14:52] LABS: Troponin T High Sens 2 HR 28 ng/L (<=22)
[2025-05-07 16:41] LABS: Troponin T High Sens 4 HR 34 ng/L (<=22)
[2025-05-07] MEDS: Ipratropium 0.5 MG/2.5 ML SOLUTION INHALATION (17:47)
[2025-05-07] MEDS: 0.9% Saline Lock 10 ML Syringe IV (21:38)
[2025-05-08] VITALS (9 sets, daily range): BP systolic 115–156; BP diastolic 63–68; PULSE 60–80; RESP 16–20; TEMP 36.4–36.7; O2SAT 95–98; BMI 22.4
[2025-05-08 04:37] LABS: Hematocrit 25.3 % (40-54); Hemoglobin 8.1 g/dL (13.0-16.5); Mean Corp Hgb Conc 32.0 g/dL (32-36); Mean Corpuscular Volume 112.9 fL (80-94); Mean Platelet Vol. 10.8 fl (6.2-12.0); POSITIVE MORPHOLOGY YES; Platelet Count 230 K/mm3 (150-450); RBC Distribution Width CV 16.4 % (11.6-14.6); RBC Distribution Width SD 68.2 fl (35.1-43.9); Red Blood Count 2.24 M/mm3 (4.6-6.2); White Blood Count 4.8 K/mm3 (4.4-11.0)
[2025-05-08 04:41] LABS: Scan Indicated on CBC? Y/N YES- FLAGS NOTED
--- NOTE | 2025-05-08 04:45 | EKG12_ITS ---
Test Reason : AM EKG
[2025-05-08 05:08] LABS: Anion Gap 10 (5-15); BUN 21 mg/dL (4-19); BUN/Creat Ratio 16.6 RATIO (10-20); Calcium,Total 9.0 mg/dL (7.6-11.0); Carbon Dioxide 28.2 mmol/L (21.0-32.0); Chloride 102 mmol/L (98-108); Estimated Creatinine Clearance 45.47 ml/min (50-250); Glucose 186 mg/dL (70-99); Potassium 4.9 mmol/L (3.3-5.1)
[2025-05-08 05:21] LABS: Differential Comment SCANNED
[2025-05-08] MEDS: Aspirin E.C. 81 MG Tablet PO (05:50)
[2025-05-08] MEDS: Ipratropium 0.5 MG/2.5 ML SOLUTION INHALATION ×3 (07:38→19:20)
--- NOTE | 2025-05-08 09:57 | PN.HOSP_ITS ---
Reason for Visit
--- NOTE | 2025-05-08 09:57 | PCM.PN.HOSP ---
Reason for Visit Chief Complaint: Shortness of breath and hypoxia Subjective Subjective Breathing well. Still with lower extremity edema. Having taking Lasix only as needed for lower extremity edema. Objective Data Objective Data Vital Signs: Vital Signs Temp Pulse Resp BP Pulse Ox O2 Del Method O2 Flow Rate 36.4 C L 61 18 151/63 H 98 Nasal Cannula 2 05/08/25 05:58 05/08/25 07:40 05/08/25 07:40 05/08/25 05:58 05/08/25 07:40 05/08/25 07:40 05/08/25 07:40 Oxygen Flow Rate (L/min) 2 Oxygen Delivery Method Nasal Cannula Weight: 75 kg Body Mass Index (BMI) 22.4 Intake & Output: Intake and Output for Last 24 Hours 05/06/25 05/07/25 05/08/25 23:59 23:59 23:59 Intake Total 1200 / 1200 Output Total 850 / 850 1800 / 1800 Balance 350 / 350 -1800 / -1800 Lab / Micro Data 05/08/25 04:07 05/08/25 04:07 Labs: Laboratory Results - last 24 hr 05/07/25 12:02: WBC 4.8, RBC 2.32 L, Hgb 8.4 L, Hct 27.0 L, MCV 116.4 H, MCH 36.2 H, MCHC 31.1 L, RDW Std Deviation 70.3 H, RDW Coeff of Matt 16.4 H, Plt Count 224, MPV 11.1, Immature Gran % (Auto) 0.800, Neut % (Auto) 75.9 H, Lymph % (Auto) 9.0 L, [place] % (Auto) 11.5 H, Eos % (Auto) 1.5, Baso % (Auto) 1.3 H, Absolute Neuts (auto) 3.6, Absolute Lymphs (auto) 0.43 L, Nucleated RBC % 0, Anisocytosis 1+, Sodium 140, Potassium 4.8, Chloride 104, Carbon Dioxide 27.3, Anion Gap 9, BUN 20 H, Creatinine 1.40 H, Est GFR (MDRD) Non-Af 49 L, BUN/Creatinine Ratio 14.1, Glucose 232 H, Calcium 9.1, Troponin T High Sens 33 H, NT pro BNP II 3325 H 05/07/25 12:30: Hemoglobin A1c 6.7 H 05/07/25 14:04: Troponin T Hi Sens 2 Hr 28 H 05/07/25 16:03: Troponin T Hi Sens 4Hr 34 H 05/07/25 21:35: POC Glucose 279 H 05/08/25 04:07: WBC 4.8, RBC 2.24 L, Hgb 8.1 L, Hct 25.3 L, MCV 112.9 H, MCH 36.2 H, MCHC 32.0, RDW Std Deviation 68.2 H, RDW Coeff of Matt 16.4 H, Plt Count 230, MPV 10.8, Differential Comment SCANNED, Sodium 140, Potassium 4.9, Chloride 102, Carbon Dioxide 28.2, Anion Gap 10, BUN 21 H, Creatinine 1.28 H, Estim Creat Clear Calc 45.47 L, Est GFR (MDRD) Non-Af 55 L, BUN/Creatinine Ratio 16.6, Glucose 186 H, Calcium 9.0 05/08/25 05:49: POC Glucose 161 H Radiography Diagnostic Testing: Radiology Impression Chest X-Ray 05/07/25 12:50 IMPRESSION: Scarring at the lung bases. No consolidation. Blunting of the costophrenic sulci from pleural fluid or pleural thickening. Reading Location: [facility] Physical Exam Const alert and no apparent distress Constitutional Narrative: Up with side of the bed. Nontoxic. On room air. No respiratory distress. No conversational dyspnea. Resp normal respiratory effort and no retractions Resp Narrative: Bibasilar crackles Cardio regular rate, regular rhythm, S1 normal heart sound and S2 normal heart sound GI normal to inspection, nondistended, normoactive bowel sounds, soft to palpation, non-tender and non-distended Extremity Extremity Narrative: 2+ lower extremity edema bilaterally. Assessment & Plan Assessment/Plan (1) Acute on chronic heart failure with preserved ejection fraction (HFpEF): PLAN: Plan Acute on chronic HFpEF exacerbation with acute hypoxia Recent echo in September showed EF 55%, stage I diastolic dysfunction, pulmonary hypertension, no significant valvular issues. Patient prescribed Lasix 40 mg daily as needed but has not taken this for several months. Presented with worsening shortness of breath and hypoxia with exertion along with lower extremity swelling. Not on home oxygen, was requiring 3 L nasal cannula at rest to maintain appropriate saturations. BNP greater than 3000. Chest x-ray with mild vascular congestion and small bilateral pleural effusions noted. Continue IV Lasix 40 mg twice daily for now, monitor daily BMP and urine output. Elevated troponins mild elevation in setting of history of CAD with stenting and acute HFpEF stress test negative Though I suspect demand ischemia from the CHF. Chronic medical conditions: COPD? Not on home oxygen. Was diagnosed with moderate COPD back in 2019. Was given multiple DuoNebs in the ED without improvement in shortness of breath, and he had no wheezing on exam. No recent upper infectious symptoms noted. Seems most consistent with CHF exacerbation as above and not COPD exacerbation. Continue home inhalers. Chronic macrocytic anemia in setting of myelodysplastic syndrome. Follows with hematology/oncology. Hemoglobin stable at baseline 8-9 on admission. Type 2 diabetes mellitus with diabetic neuropathy? Glucose 232 on admit. A1c 6.7%. Not on any home medications for diabetes. Will treat with sliding scale insulin meals while inpatient, adjust as needed. CKD stage IIIa? Creatinine 1.40 on admit, stable at baseline. Monitoring daily BMP and urine output while on IV Lasix as above. DVT prophylaxis: Lovenox CODE STATUS: DNR-CCA, DNI Expected disposition: Home, hopefully in next 24 to 48 hours Charges/Coding Visit Charges Inpatient E&M: 72693 Subs Hosp L2
[2025-05-08] MEDS: 0.9% Saline Lock 10 ML Syringe IV ×2 (10:10→21:59)
--- NOTE | 2025-05-08 10:10 | CASEMGMT ---
KHADIJAH BRAUN Face to Face with patient for initial transition planning/care coordination assessment. RN CM introduced self and role at [facility]. Patient lying in bed, alert and oriented. Patient willing to participate in assessment and is able to answer all questions appropriately. Care providers, pharmacy, and demographics verified. Strata: 2 PCP: [facility] Specialists: Vito, panel beater; Nabeel, oncologist Preferred Pharmacy: [facility] Insurance: [facility], [employer] Prescription Benefit: yes Living Will/HPOA: yes, daughter Ale Middleton LNOK: daughter Living Arrangements: Patient lives with daughter in a in-law suite with one step to enter. Patient is independent at home. Transportation: self, daughter, son DME/HHC: Patient has shower chair, cane, grab bars at home. No previous SNF. Patient has had [facility] previously. Will monitor for home oxygen, prefers [employer], green sheet on chart. Patient wishes to discharge home, denies need for home health at this time. Patient states he has no further needs or concerns at this time. CM to follow for discharge planning needs that may arise. Disposition Plan: Patient to discharge home with family support and follow-up plans in place. Will monitor for home oxygen. Lisa BOOKER, RN, CM
--- NOTE | 2025-05-08 11:13 | STRESSREP ---
Stress Test Report Stress Test Report Patient Name: houston Knight Date of : 1940 Patient Status: Clinical Stress Test Report Date: 05/07/2025 Procedure: Pharmacologic stress nuclear imaging study Indications: CAD with previous stents, hypertension, diabetes mellitus, hyperlipidemia with elevated troponin and acute heart failure with preserved EF Consent: Per the patient Procedure: The patient underwent pharmacologic (Regadenoson 0.4mg ) evaluation with a peak heart rate of 90 beats per minute (67%predicted maximal heart rate) and a peak blood pressure of 160/62 mmHg. The baseline ECG demonstrated unclear underlying basic rhythm with occasional sinus beats and occasional atrial paced beats, QS in V1 V2 with lateral Q waves. There were no sustaind cardiac dysrhythmias pretest, during pharmacologic infusion, or recovery except. There was no complaint of chest discomfort during pharmacologic infusion or recovery. The examination was discontinued secondary to completion of protocol. Impression: 1. Pharmacologic (Regadenoson) evaluation 2. There were no ischemic changes or sustained cardiac dysrhythmias pretest, during pharmacologic infusion, or recovery. Myocardial perfusion imaging study: Technique: The patient was injected with 12.0 millicuries of technetium 99m Cardiolite and subsequently rest SPECT Cardiolite nuclear imaging was obtained in the horizontal long, vertical long, and short axis views. The patient underwent pharmacologic (Regadenoson) evaluation with a peak heart rate of 90 beats per minute (67% percent predicted maximal heart rate) and a peak blood pressure of 160/62 mmHg. The patient was injected with 35.4 millicuries of technetium 99m Cardiolite and subsequently stress SPECT Cardiolite nuclear imaging was obtained in the horizontal long, vertical long, and short axis views. A gated Cardiolite study at peak stress was obtained. Interpretation: Rest and stress SPECT Cardiolite nuclear imaging status post realignment, normalization, and attenuation correction demonstrate relative uniform tracer uptake and myocardial perfusion appearing within normal limits with the exception of a small area of subtle diminished myocardial perfusion/tracer uptake near the apical segments without significant change between rest and stress. There is end systolic thickening and brightening. The gated Cardiolite study demonstrates myocardial thickening and inward wall motion. The reported LVEF is 67%. The TID ratio was calculated at 1.14 Impression: 1. Rest and stress SPECT her nuclear imaging demonstrate normal myocardial perfusion imaging without definitive ischemia or infarction. 2. The gated Cardiolite study reports an LVEF of 67%. This note was generated with Melodigramation software. It may contain incorrect words, spelling, and punctuation that were not noted in checking the note before signing.
--- NOTE | 2025-05-08 11:13 | STRESSREP_ITS ---
Stress Test Report
--- NOTE | 2025-05-08 13:48 | CASEMGMT ---
Social Work Pt had asked CM for transportation resources. SW met w/pt, provided pt w/information for both [facility]. Pt mentioned when he lived elsewhere he could call day of to get transportation to appts and really liked being able to do this. SW explained to pt that in order to use these services he does need to call ahead of time, cannot call day of. Pt states understanding. No further social service needs at this time. BABITA Moses
[2025-05-09] VITALS (10 sets, daily range): BP systolic 120–140; BP diastolic 50–88; PULSE 60–90; RESP 16–20; TEMP 36.4–36.9; O2SAT 85–95
[2025-05-09 06:55] LABS: Hematocrit 28.5 % (40-54); Hemoglobin 9.0 g/dL (13.0-16.5); Immature Granulocytes Count 0.020 X10^3/uL (0.0-0.0); Mean Corp Hgb Conc 31.6 g/dL (32-36); Mean Corpuscular Volume 111.8 fL (80-94); Mean Platelet Vol. 11.2 fl (6.2-12.0); NRBC Flagged by Analyzer 0 % (0-5); POSITIVE MORPHOLOGY YES; Platelet Count 279 K/mm3 (150-450); RBC Distribution Width CV 16.2 % (11.6-14.6); RBC Distribution Width SD 66.7 fl (35.1-43.9); Red Blood Count 2.55 M/mm3 (4.6-6.2); White Blood Count 4.7 K/mm3 (4.4-11.0)
[2025-05-09 06:58] LABS: Differential Indicated SCAN CRITERIA MET
[2025-05-09 07:21] LABS: Anion Gap 10 (5-15); BUN 30 mg/dL (4-19); BUN/Creat Ratio 19.4 RATIO (10-20); Calcium,Total 9.6 mg/dL (7.6-11.0); Carbon Dioxide 31.4 mmol/L (21.0-32.0); Chloride 99 mmol/L (98-108); Estimated Creatinine Clearance 36.29 ml/min (50-250); Glucose 137 mg/dL (70-99); Potassium 4.1 mmol/L (3.3-5.1)
[2025-05-09] MEDS: Ipratropium 0.5 MG/2.5 ML SOLUTION INHALATION ×3 (07:55→19:30)
[2025-05-09 08:25] LABS: Differential Comment SCANNED; Polychromasia RARE
[2025-05-09] MEDS: Aspirin E.C. 81 MG Tablet PO (10:15)
--- NOTE | 2025-05-09 15:21 | PN.HOSP_ITS ---
Reason for Visit
--- NOTE | 2025-05-09 15:21 | PCM.PN.HOSP ---
Reason for Visit Chief Complaint: Shortness of breath and hypoxia Subjective Subjective Saw patient at bedside this morning. Mildly fatigued appearing but otherwise sitting back comfortably in bed, conversing normally, in no acute distress. Still reports lower extremity swelling and some shortness of breath with exertion. Does report good urine output on IV Lasix. No other new concerns today. Objective Data Objective Data Vital Signs: Vital Signs Temp Pulse Resp BP Pulse Ox O2 Del Method O2 Flow Rate 98.3 F 61 18 120/51 L 93 Room Air 2 05/09/25 10:00 05/09/25 13:28 05/09/25 13:28 05/09/25 10:00 05/09/25 10:00 05/09/25 10:00 05/08/25 07:40 Oxygen Flow Rate (L/min) 2 Oxygen Delivery Method Room Air Weight: 75 kg Body Mass Index (BMI) 22.4 Intake & Output: Intake and Output for Last 24 Hours 05/07/25 05/08/25 05/09/25 23:59 23:59 23:59 Intake Total 1200 / 1200 200 / 200 Output Total 850 / 850 3700 / 3700 1950 / 1950 Balance 350 / 350 -3700 / -3700 -1750 / -1750 Lab / Micro Data 05/09/25 06:13 05/09/25 06:13 Labs: Laboratory Results - last 24 hr 05/08/25 17:08: POC Glucose 146 H 05/08/25 21:58: POC Glucose 126 H 05/09/25 06:13: WBC 4.7, RBC 2.55 L, Hgb 9.0 L, Hct 28.5 L, MCV 111.8 H, MCH 35.3 H, MCHC 31.6 L, RDW Std Deviation 66.7 H, RDW Coeff of Matt 16.2 H, Plt Count 279, MPV 11.2, Immature Gran % (Auto) 0.400, Neut % (Auto) 62.0, Lymph % (Auto) 20.7, [place] % (Auto) 12.8 H, Eos % (Auto) 3.0, Baso % (Auto) 1.1 H, Absolute Neuts (auto) 2.9, Absolute Lymphs (auto) 0.97, Nucleated RBC % 0, Differential Comment SCANNED, Polychromasia RARE, Ovalocytes RARE, Sodium 140, Potassium 4.1, Chloride 99, Carbon Dioxide 31.4, Anion Gap 10, BUN 30 H, Creatinine 1.55 H, Estim Creat Clear Calc 36.29 L, Est GFR (MDRD) Non-Af 43 L, BUN/Creatinine Ratio 19.4, Glucose 137 H, Calcium 9.6 05/09/25 06:25: POC Glucose 130 H Physical Exam Const alert, oriented x3, no apparent distress and average body habitus Constitutional Narrative: Pleasant elderly male, mentally sharp, mildly fatigued appearing but otherwise sitting back comfortably in bed, conversing normally, in no acute distress. General Appearance: cooperative and comfortable HEENT normocephalic, head/scalp atraumatic, hearing grossly normal bilaterally, nasal mucous membranes and turbinates normal and moist oral mucous membranes Eyes PERRL, EOMs intact bilaterally and conjunctivae normal Neck full ROM Chest inspection of chest normal Resp normal respiratory effort and no use of accessory muscles Resp Narrative: Breathing comfortably on room air at rest. Diminished breath sounds in bilateral lungs throughout with mild crackles noted in lung bases. No wheezing noted. Stable. Cardio regular rate, regular rhythm, no murmurs and peripheral pulses 2+ throughout GI normal to inspection, nondistended, normoactive bowel sounds, soft to palpation, non-tender and non-distended Back/Spine normal ROM Extremity Extremity Narrative: +1-2 lower extremity pitting edema up to the knees bilaterally. Skin no rashes or lesions noted Psych mental status grossly normal Assessment & Plan Assessment/Plan (1) Acute on chronic heart failure with preserved ejection fraction (HFpEF): PLAN: Plan Patient is an 84-year-old male who presented to [facility] ED on 05/07/2025 with shortness of breath and hypoxia. 1. Acute on chronic HFpEF exacerbation with hypoxia ? Follows with cardiology as below. Recent echo in September showed EF 55%, stage I diastolic dysfunction, pulmonary hypertension, no significant valvular issues. Patient prescribed Lasix 40 mg daily as needed but has not taken this for several months. Presented with worsening shortness of breath and hypoxia with exertion along with lower extremity swelling. Not on home oxygen, was requiring 3 L nasal cannula at rest to maintain appropriate saturations. BNP greater than 3000. Chest x-ray with mild vascular congestion and small bilateral pleural effusions noted. Treated with IV Lasix 40 mg twice daily with good urine output. Creatinine worsening on 05/09 so will de-escalate to p.o. Lasix 40 mg daily starting on 05/10. O2 testing done on 05/09 and patient stable on room air at rest but dropped to 85% on room air on exertion. Suspect he may be at his new baseline. However, will repeat O2 testing tomorrow with plan for discharge home likely with supplemental oxygen. 2. Elevated troponins in setting of history of CAD with stenting, hypertension, hyperlipidemia, SSS s/p pacemaker placement ? Follows with [facility], last office visit on 03/24. Patient reported fatigue, chronic lower extremity swelling and shortness of breath with exertion at that time. Because of this, cardiology noted that a stress test was ordered for further evaluation but has not been completed yet. Troponin trend 33 > 28 > 34 in the ED, EKG with no ischemic changes and no chest pain noted per patient. However, given recent cardiology recommendations, nuclear stress test was completed on 05/08 and was negative. Elevated troponins thus are presumed secondary to demand ischemia in setting of CHF exacerbation above. Continue home aspirin, statin, amlodipine, atenolol and valsartan. 3. COPD ? Not on home oxygen. Was diagnosed with moderate COPD back in 2019. Was given multiple DuoNebs in the ED without improvement in shortness of breath, and he had no wheezing on exam. No recent upper infectious symptoms noted. Seems most consistent with CHF exacerbation as above and not COPD exacerbation. Continue home inhalers. 4. 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 Follows with hematology/oncology. Hemoglobin stable at baseline 8-9 on admission. 5. Type 2 diabetes mellitus with diabetic neuropathy ? Glucose 232 on admit. A1c 6.7%. Not on any home medications for diabetes. Treating with sliding scale insulin meals while inpatient, adjust as needed. 6. CKD stage IIIa ? Creatinine 1.40 on admit, stable at baseline. Creatinine worsened to 1.55 on 05/09 with IV diuresis as above so de-escalated to p.o. Lasix. Follow-up a.m. BMP. DVT prophylaxis: Lovenox CODE STATUS: DNR-CCA, DNI Expected disposition: Home, 1 to 2 days Total clinical time spent by myself addressing the patient's medical issues, reviewing all the data, and collaborating with patient's care team: 38 minutes. Charges/Coding Visit Charges Inpatient E&M: 86705 Subs Hosp L2
[2025-05-10] VITALS (7 sets, daily range): BP systolic 143–160; BP diastolic 50–75; PULSE 60–69; RESP 15–18; TEMP 36.2–36.8; O2SAT 86–95; BMI 27.8
[2025-05-10 06:20] LABS: Hematocrit 27.3 % (40-54); Hemoglobin 9.0 g/dL (13.0-16.5); Mean Corp Hgb Conc 33.0 g/dL (32-36); Mean Corpuscular Volume 110.5 fL (80-94); Mean Platelet Vol. 11.0 fl (6.2-12.0); POSITIVE MORPHOLOGY YES; Platelet Count 250 K/mm3 (150-450); RBC Distribution Width CV 16.3 % (11.6-14.6); RBC Distribution Width SD 66.4 fl (35.1-43.9); Red Blood Count 2.47 M/mm3 (4.6-6.2); White Blood Count 3.9 K/mm3 (4.4-11.0)
[2025-05-10 06:22] LABS: Scan Indicated on CBC? Y/N YES- FLAGS NOTED
[2025-05-10] MEDS: Ipratropium 0.5 MG/2.5 ML SOLUTION INHALATION ×2 (06:45→12:12)
[2025-05-10 06:53] LABS: Anion Gap 10 (5-15); BUN 30 mg/dL (4-19); BUN/Creat Ratio 20.7 RATIO (10-20); Calcium,Total 9.3 mg/dL (7.6-11.0); Carbon Dioxide 29.3 mmol/L (21.0-32.0); Chloride 101 mmol/L (98-108); Estimated Creatinine Clearance 43.09 ml/min (50-250); Glucose 163 mg/dL (70-99); Potassium 4.1 mmol/L (3.3-5.1)
[2025-05-10] MEDS: Aspirin E.C. 81 MG Tablet PO (09:12)
--- NOTE | 2025-05-10 10:39 | DCINST_ITS ---
Discharge Instructions
--- NOTE | 2025-05-10 10:39 | PCM.DC ---
Discharge Instructions DC O2, CPAP, BIPAP needs Home O2 Discharge instructions: No Dressing / Incision Discharge Activity: Return to Normal Activity Dressing / Incision Call your doctor if you observe: Fever of 101 or Higher, Shortness of breath, Dizziness, Fainting spells, Swelling in the ankles, Chest pain and Increased palpitations (irregular heartbeat) Follow Up Care Test Results: Test results from this visit will be discussed in further detail at your follow-up appointment, if applicable. Discharge Plan Admission Admit Date/Time: 05/07/25 14:43 Attending Provider: Mayco Schroeder Primary Care Provider: Reggie Leigh Consulting Providers: Nabor Calzada; Myesha Seay; Nima Sahu Instructions Additional Instructions / Restrictions: continue with 6-7 cups of liquid daily Discharge Orders/Prescriptions Prescriptions: Continued cholecalciferol (vitamin D3) 10 mcg (400 unit) capsule 10 mcg PO QDAY albuterol sulfate 90 mcg/actuation HFA aerosol inhaler 2 puff inhalation Q4H PRN (Reason: shortness of breath or wheezing) ascorbate calcium (vitamin C) 500 mg tablet 500 mg PO QDAY atenolol 50 mg tablet 50 mg PO QDAY simvastatin 20 mg tablet 20 mg PO QDAY Spiriva Respimat 1.25 mcg/actuation mist 2 puff inhalation Q24H valsartan 80 mg tablet 40 mg PO QDAY folic acid 1 mg tablet 0.8 mg PO QDAY meclizine [Antivert] 25 mg tablet,chewable 25 mg PO PRN furosemide 40 mg tablet 40 mg PO DAILY gabapentin 100 mg capsule 100 mg PO DAILY PRN (Reason: neuropathy) aspirin [Ecotrin Low Strength] 81 mg tablet,delayed release (DR/EC) 81 mg PO QDAY Qty: 90 3RF amlodipine 5 mg tablet 5 mg PO QDAY Qty: 90 3RF Discontinued furosemide 20 mg tablet 20 mg PO DAILY Referrals / Follow Up: Reggie Leigh, HYDROGRAPHIC ENGINEER-C [Primary Care Provider] - Within 1 Week Disposition Disposition (needs filled in before D/C Order can be placed): Home, Self Care
--- NOTE | 2025-05-10 11:15 | PHA.DC_ITS ---
Pharmacy [place] Med Reconciliation
--- NOTE | 2025-05-10 11:15 | PHA.DC.MR.R ---
Pharmacy [place] Med Reconciliation Pharmacy Service has performed discharge medication reconciliation for this patient. The patient's discharge medication list was reviewed for discrepancies and discrepancies were resolved. Medications at Discharge Home Medications ascorbate calcium (vitamin C) 500 mg tablet 500 mg PO QDAY supplement 05/04/24 atenolol 50 mg tablet 50 mg PO QDAY heart 05/04/24 simvastatin 20 mg tablet 20 mg PO QDAY cholesterol 05/04/24 tiotropium bromide 1.25 mcg/actuation mist for inhalation (Spiriva Respimat) 2 puff inhalation Q24H 05/04/24 valsartan 80 mg tablet 40 mg PO QDAY hf 05/04/24 albuterol sulfate 90 mcg/actuation aerosol inhaler 2 puff inhalation Q4H PRN shortness of breath or wheezing 05/19/24 cholecalciferol (vitamin D3) 10 mcg (400 unit) capsule 10 mcg PO QDAY supplement 05/19/24 folic acid 1 mg tablet 0.8 mg PO QDAY supplement 05/19/24 meclizine 25 mg chewable tablet (Antivert) 25 mg PO PRN vertigo 08/19/24 aspirin 81 mg tablet,delayed release (Ecotrin Low Strength) 81 mg PO QDAY heart #90 tabs 09/17/24 amlodipine 5 mg tablet 5 mg PO QDAY bp #90 tabs 10/28/24 furosemide 40 mg tablet 40 mg PO DAILY hf 05/07/25 gabapentin 100 mg capsule 100 mg PO DAILY PRN neuropathy 05/07/25
--- NOTE | 2025-05-10 12:17 | PCM.DC.SUM ---
Providers Date of Admission: 05/07/25 Primary Care Physician: ADILSON Poole, FARM BOSS-C Reason For Visit: CHF EXACERBATION W/ HYPOXIA Diagnosis Discharge Diagnosis (1) Acute on chronic heart failure with preserved ejection fraction (HFpEF): Status: Acute Code(s): I50.33 - Acute on chronic diastolic (congestive) heart failure Medications at Discharge Home Medications ascorbate calcium (vitamin C) 500 mg tablet 500 mg PO QDAY supplement 05/04/24 atenolol 50 mg tablet 50 mg PO QDAY heart 05/04/24 simvastatin 20 mg tablet 20 mg PO QDAY cholesterol 05/04/24 tiotropium bromide 1.25 mcg/actuation mist for inhalation (Spiriva Respimat) 2 puff inhalation Q24H 05/04/24 valsartan 80 mg tablet 40 mg PO QDAY hf 05/04/24 albuterol sulfate 90 mcg/actuation aerosol inhaler 2 puff inhalation Q4H PRN shortness of breath or wheezing 05/19/24 cholecalciferol (vitamin D3) 10 mcg (400 unit) capsule 10 mcg PO QDAY supplement 05/19/24 folic acid 1 mg tablet 0.8 mg PO QDAY supplement 05/19/24 meclizine 25 mg chewable tablet (Antivert) 25 mg PO PRN vertigo 08/19/24 aspirin 81 mg tablet,delayed release (Ecotrin Low Strength) 81 mg PO QDAY heart #90 tabs 09/17/24 amlodipine 5 mg tablet 5 mg PO QDAY bp #90 tabs 10/28/24 furosemide 40 mg tablet 40 mg PO DAILY hf 05/07/25 gabapentin 100 mg capsule 100 mg PO DAILY PRN neuropathy 05/07/25 Hospital Course Operations None Procedures Nuclear stress test Summary of Care Provided Minutes Spent on Discharge: 36 Hospital Course: Per HPI: DARVIN BURGESS, is a 84 M who presented to [facility] ED on 05/07/2025 with worsening shortness of breath and hypoxia. Medical history significant for COPD not on home oxygen, history of CAD with stenting, hypertension, hyperlipidemia, sick sinus syndrome s/p pacemaker placement, myelodysplastic syndrome with chronic anemia, and CKD stage IIIa. He lives at home with his son and reports fairly good functional status at baseline. He has noticed increasing shortness of breath with exertion over the past few weeks along with some lower extremity swelling. He has a pulse ox at home and noted that his oxygen level dropped into the 60 to 70s with exertion and he felt lightheaded today, so he came to the ED for further evaluation. In the ED he was hypoxic to the mid 80s on room air at rest that improved on 2 L nasal cannula, was mildly hypertensive to the 140s to 150s systolic, was otherwise in normal sinus rhythm and afebrile. CBC and BMP were at baseline. Troponin trend 33 > 28 > 34. BNP 3325. Chest x-ray showed mild vascular congestion, blunting of the costophrenic angles due to either pleural fluid versus pleural thickening. He was given a few rounds of DuoNebs in the ED without much improvement in shortness of breath. After his workup above, he was given a dose of IV Lasix and hospitalist was contacted for admission. I saw the patient at bedside in the ED. Patient had fairly good energy level and was sitting back comfortably in bed, conversing normally, in no acute distress. He did have +2-3 lower extremity pitting edema noted on exam. He denied any shortness of breath or any other acute concerns at rest currently. Will be admitted for further management. Hospital Course: 1. Acute on chronic diastolic CHF with hypoxia/CAD status post stent/essential HTN/HLD/sick sinus syndrome status post pacemaker placement?84-year-old male presents to the hospital with worsening shortness of breath and hypoxia. He was started on aggressive IV diuresis which was transitioned to oral diuresis on the day of discharge because of an elevated creatinine on 05/09/2025. On the day of discharge his creatinine did improved to 1.46 from a peak of 1.55. Will continue with daily dosing of Lasix at 40 mg p.o., I also discussed with him the benefit of a fluid restriction to about 6 to 7 cups of liquid daily. Amatory pulse ox today demonstrates need of 2 L nasal cannula with ambulation, I have reviewed the oxygen testing, and this patient qualifies for the home equipment and portability. The patient is mobile in the home and the community. I discussed with him the plan for possible discharge today and he expressed understanding of the risks and benefits of going home and would like to go home today. He did have a stress test this admission with an EF of 67% and it was nonischemic, his previous echo from 10/20/2024 demonstrates an EF of 55% with stage I diastolic dysfunction and an RVSP of 71 mmHg. 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 2. COPD, chronic microcytic anemia with a history of myelodysplastic syndrome, type 2 diabetes with neuropathy, CKD 3 are all chronic medical conditions which complicate his care. His home medications were continued where appropriate. Physical Exam Narrative General: Alert, Oriented x3, Cooperative, No apparent distress HEENT: Atraumatic, PERRLA, EOMI, Normocephalic Oral: Moist Mucosa Neck: Supple, No JVD Lungs: Diminished, Normal air movement, No rhonchi, No wheeze, No rales Cardiovascular: Regular rate, Regular Rhythm, Normal S1, Normal S2, No murmurs Abdomen: Soft, Non Tender, Non-Distended, No Hepato-splenomegaly Extremities: Edema, Capillary Refill Less than 3 Seconds Skin: No rashes, No breakdown Musculoskeletal: No Tenderness to Palpation of Joints or Extremities Neurological: No focal neurological deficits, moves all extremities Psych/Mental Status: Normal Affect, Appropriate Weight / BMI Weight Weight: 205 lb 11.06 oz Body Mass Index (BMI) 27.8 ABG / Lab / Microbiology Data 05/10/25 06:04 05/10/25 06:04 Laboratory: Laboratory Results - last 24 hr 05/09/25 10:33: POC Glucose 216 H 05/09/25 16:20: POC Glucose 173 H 05/09/25 22:07: POC Glucose 152 H 05/10/25 06:04: WBC 3.9 L, RBC 2.47 L, Hgb 9.0 L, Hct 27.3 L, MCV 110.5 H, MCH 36.4 H, MCHC 33.0, RDW Std Deviation 66.4 H, RDW Coeff of Matt 16.3 H, Plt Count 250, MPV 11.0, Sodium 140, Potassium 4.1, Chloride 101, Carbon Dioxide 29.3, Anion Gap 10, BUN 30 H, Creatinine 1.46 H, Estim Creat Clear Calc 43.09 L, Est GFR (MDRD) Non-Af 47 L, BUN/Creatinine Ratio 20.7 H, Glucose 163 H, Calcium 9.3 05/10/25 06:43: POC Glucose 156 H D/C Instructions Call your doctor if you observe: Fever of 101 or Higher, Shortness of breath, Dizziness, Fainting spells, Swelling in the ankles, Chest pain and Increased palpitations (irregular heartbeat) DC O2, CPAP, BIPAP Needs Home O2 Discharge instructions: No Meaningful Use Info Meaningful Use Meaningful Use Diagnoses (Choose all that apply): None applicable Discharge Plan Admission Admit Date/Time: 05/07/25 14:43 Attending Provider: Mayco Schroeder Primary Care Provider: Reggie Leigh Consulting Providers: Nabor Calzada; Myseha Seay; Nima Sahu Instructions Additional Instructions / Restrictions: continue with 6-7 cups of liquid daily Discharge Orders/Prescriptions Prescriptions: Continued cholecalciferol (vitamin D3) 10 mcg (400 unit) capsule 10 mcg PO QDAY albuterol sulfate 90 mcg/actuation HFA aerosol inhaler 2 puff inhalation Q4H PRN (Reason: shortness of breath or wheezing) ascorbate calcium (vitamin C) 500 mg tablet 500 mg PO QDAY atenolol 50 mg tablet 50 mg PO QDAY simvastatin 20 mg tablet 20 mg PO QDAY Spiriva Respimat 1.25 mcg/actuation mist 2 puff inhalation Q24H valsartan 80 mg tablet 40 mg PO QDAY folic acid 1 mg tablet 0.8 mg PO QDAY meclizine [Antivert] 25 mg tablet,chewable 25 mg PO PRN furosemide 40 mg tablet 40 mg PO DAILY gabapentin 100 mg capsule 100 mg PO DAILY PRN (Reason: neuropathy) aspirin [Ecotrin Low Strength] 81 mg tablet,delayed release (DR/EC) 81 mg PO QDAY Qty: 90 3RF amlodipine 5 mg tablet 5 mg PO QDAY Qty: 90 3RF Discontinued furosemide 20 mg tablet 20 mg PO DAILY Referrals / Follow Up: Reggie Leigh, FARM BOSS-C [Primary Care Provider] - 05/14/25 2:20 pm Disposition Disposition (needs filled in before D/C Order can be placed): Home, Self Care Charges/Coding Visit Charges Inpatient E&M: 16597 Disch Hosp >30min
--- NOTE | 2025-05-10 13:29 | CASEMGMT ---
Patient has order for discharge. Patient qualifies for home oxygen, script received and referral sent to [facility], patient's preferred provider. RN CM in to discuss needs at discharge. Patient denies further needs or help at discharge. Patient had no further questions or concerns. RN CM updated discharge plan.
--- NOTE | 2025-05-10 16:14 | CHAPLAIN ---
Type of Pastoral Visit ___ Initial Visit ___ Follow-up Visit ___ On-call Visit ___ General Patient Visit ___ Spiritual Assessment ___ Family Conference ___ Bereavement ___ Rapid Response ___ Code Blue ___ Other (describe below) Pastoral Care Referral From ___ Patient ___ Family ___ Nurse ___ Physician ___ C Python Developer ___ Social Media Marketing Manager ___ Other (describe below) Sacrament/Intervention ___ Active listening ___ Anointing ___ Taoism ___ Bereavement ___ Communion ___ Gela exploration ___ ___ Life review ___ Prayer ___ Reconciliation ___ Sacrament of Sick ___ Supportive presence ___ Wedding ___ Other (describe below) Pastoral Comments patient was discharged today before a visit was attempted
== END 2025-05-10 15:17 | disposition home or self-care (01) | DRG 291 ==
LOC: ED 14:53 → PCU 15:06
PROVIDERS: Admitting Provider Hospitalist; Emergency Provider Emergency Medicine; Visit Provider Family Medicine
DX: I13.0 Hypertensive heart and chronic kidney disease with heart failure and stage 1 through stage 4 chronic kidney disease, or unspecified chronic kidney disease (principal); I50.33 Acute on chronic diastolic (congestive) heart failure; I24.89 Other forms of acute ischemic heart disease; Z66 Do not resuscitate; D46.9 Myelodysplastic syndrome, unspecified; E11.22 Type 2 diabetes mellitus with diabetic chronic kidney disease; N18.31 Chronic kidney disease, stage 3a; J44.9 Chronic obstructive pulmonary disease, unspecified; I49.5 Sick sinus syndrome; E11.42 Type 2 diabetes mellitus with diabetic polyneuropathy; E78.5 Hyperlipidemia, unspecified; I25.10 Atherosclerotic heart disease of native coronary artery without angina pectoris; R09.02 Hypoxemia; Z95.0 Presence of cardiac pacemaker; Z95.5 Presence of coronary angioplasty implant and graft; Z79.82 Long term (current) use of aspirin; Z79.84 Long term (current) use of oral hypoglycemic drugs; Z79.899 Other long term (current) drug therapy; Z87.891 Personal history of nicotine dependence
CPT/HCPCS: 36415; 71046; 78452; 80048; 82962; 83036; 83880; 84484; 85025; 85027; 93005; 93017; 94640; 94668; 97802; 99285; A9500; A4216; J1938; J2785

== ENCOUNTER → 2025-06-07 | Outpatient (CLI) | payer MEDICARE, OTHER, SELFPAY ==
[2025-06-07 17:27] LABS: Anion Gap 11 (5-15); BUN 47 mg/dL (4-19); BUN/Creat Ratio 23.3 RATIO (10-20); Calcium,Total 9.6 mg/dL (7.6-11.0); Carbon Dioxide 25.8 mmol/L (21.0-32.0); Chloride 104 mmol/L (98-108); Glucose 238 mg/dL (70-99); Potassium 4.7 mmol/L (3.3-5.1)
== END | disposition home or self-care (01) ==
LOC: LAB 15:39
PROVIDERS: Referring Provider Student in an Organized Health Care Education/Training Program; Visit Provider Student in an Organized Health Care Education/Training Program
DX: I50.33 Acute on chronic diastolic (congestive) heart failure (principal)
CPT/HCPCS: 36415; 80048

== ENCOUNTER → 2025-06-22 | Outpatient (CLI) | payer MEDICARE, OTHER, SELFPAY ==
[2025-06-22 13:09] LABS: Anion Gap 10 (7-18); BUN 38 mg/dL (4-19); BUN/Creat Ratio 19.9 RATIO (10-20); Calcium,Total 9.2 mg/dL (7.6-11.0); Carbon Dioxide 25.2 mmol/L (20.0-29.0); Chloride 103 mmol/L (96-106); Glucose 191 mg/dL (70-99); Potassium 5.2 mmol/L (3.5-5.1)
== END | disposition home or self-care (01) ==
PROVIDERS: Referring Provider Student in an Organized Health Care Education/Training Program; Visit Provider Student in an Organized Health Care Education/Training Program
DX: L40.0 Psoriasis vulgaris (principal); E78.2 Mixed hyperlipidemia; I10 Essential (primary) hypertension
CPT/HCPCS: 36415; 80048